=== PATIENT | female | born 1965 | race Two or more races ===

== ENCOUNTER 2016-10-30 10:17 | Observation (INO) | payer OTHER ==
[~2016-10-30] VITALS: Ht 152.4 cm; Wt 67.9 kg
[2016-10-30 11:01] LABS: EOSINOPHIL (%) 0.5 % (0-5); HEMATOCRIT 40.1 % (36.0-46.0); IMMATURE GRANULOCYTE (%) 0.3 % (0.0-0.7); LYMPHOCYTE COUNT 1.3 K/uL (1.0-2.8); MCH 28.2 PG (29.0-34.0); MCHC 33.4 G/DL (30.0-36.0); MCV 84.2 FL (83-99); MEAN PLAT.VOLUME 9.4 uM^3 (9.5-12.4); MONOCYTE (%) 3.9 % (3-12); MONOCYTE COUNT 0.3 K/uL (0-0.8); PLATELET COUNT 316 K/uL (156-360); RBC DIS.WIDTH-CV 12.1 % (11.8-14.6); RED BLOOD COUNT 4.76 M/uL (3.80-5.20); WHITE BLOOD COUNT 7.6 K/uL (4.1-10.2)
[2016-10-30 11:13] LABS: CHLORIDE 102 mEq/L (99-109)
[2016-10-30 11:14] LABS: POTASSIUM 3.7 mEq/L (3.7-5.4); SODIUM 139 mEq/L (136-147)
[2016-10-30 11:15] LABS: GLUCOSE 100 mg/dL (70-99)
[2016-10-30 11:17] LABS: ANION GAP 11 MEQ/L (2-14)
[2016-10-30 11:19] LABS: GFR ESTIMATE (CALCULATED) > 59 mL/min/
[2016-10-30 11:20] LABS: UREA NITROGEN (BUN) 9 mg/dL (9-23)
[2016-10-30] MEDS ORDERED: COZAAR100 MG PO (15:33)
[2016-10-30] MEDS ORDERED: DAILY VALUE1 EACH PO (15:34)
[2016-10-30] MEDS ORDERED: IRON325 M1 PO (15:35)
[2016-10-30 16:26] LABS: TROP-I INTERPRETATION NEGATIVE; TROPONIN-I 0.03 ng/mL (0.0-0.30)
[2016-10-30 18:05] VITALS: BP 190/101
[2016-10-30 19:58] VITALS: BP 168/84
[2016-10-30 21:48] LABS: TROP-I INTERPRETATION NEGATIVE; TROPONIN-I 0.02 ng/mL (0.0-0.30)
[2016-10-30 22:39] LABS: ADD MIUA? YES; BILIRUBIN NEGATIVE; BLOOD LARGE; GLUCOSE (STRIP) NEGATIVE; KETONES NEGATIVE; LEUKOCYTES NEGATIVE; NITRITE NEGATIVE; PROTEIN (STRIP) NEGATIVE; SPECIFIC GRAVITY 1.009 (1.000-1.030); UROBILINOGEN 0.2 MG/DL (0.2-1.0)
[2016-10-30 22:46] LABS: COLOR BLOODY ((YELLOW))
[2016-10-30 22:58] LABS: CASTS NONE SEEN /LPF; EPITHELIAL CELLS 1+ /HPF; MUCUS NONE SEEN /LPF; RED BLOOD CELLS TNTC /HPF (0-5)
[2016-10-30 22:59] LABS: AMORPHOUS PHOSPHATE CRYSTALS 2+; BACTERIA NONE SEEN /HPF; CRYSTALS PRESENT; UCUL ADDED? NO
[2016-10-31 01:03] VITALS: BP 117/69
[2016-10-31 04:05] VITALS: BP 138/79
[2016-10-31 07:24] LABS: HEMATOCRIT 39.3 % (36.0-46.0); MCH 27.9 PG (29.0-34.0); MCHC 32.8 G/DL (30.0-36.0); MCV 85.1 FL (83-99); MEAN PLAT.VOLUME 9.8 uM^3 (9.5-12.4); PLATELET COUNT 327 K/uL (156-360); RBC DIS.WIDTH-CV 12.6 % (11.8-14.6); RBC DIS.WIDTH-SD 38.8 % (39-53); RED BLOOD COUNT 4.62 M/uL (3.80-5.20); WHITE BLOOD COUNT 9.1 K/uL (4.1-10.2)
[2016-10-31 07:50] LABS: ANION GAP 10 MEQ/L (2-14); CHLORIDE 104 MEQ/L (99-109); GFR ESTIMATE (CALCULATED) > 59 mL/min/; GLUCOSE 97 mg/dL (70-99); POTASSIUM 3.6 MEQ/L (3.7-5.4); SAMPLE HEMOLYSIS CHECK 0; SAMPLE ICTERIC CHECK 0; SAMPLE LIPEMIA CHECK 0; SODIUM 141 MEQ/L (136-147); UREA NITROGEN (BUN) 11 mg/dL (9-23)
[2016-10-31 09:00] VITALS: BP 171/93
[2016-10-31] MEDS ORDERED: NORVASC5 MG PO (11:14)
[2016-10-31] MEDS ORDERED: HYZAAR 100-11 TABLET PO (11:14)
[2016-10-31 12:15] VITALS: BP 134/68
== END 2016-10-31 14:47 | disposition home or self-care (01) ==
LOC: EME 10:17 → EDOF 14:27 → 5WEST 17:37
PROVIDERS: Emergency Medicine; Physician Assistant
DX: I16.0 Hypertensive urgency (principal); I10 Essential (primary) hypertension; D50.9 Iron deficiency anemia, unspecified; R51 Headache
CPT/HCPCS: 70450; 71010; 80048; 81003; 84484; 85025; 85027; 93005; 99281; 99285; G0378; J7040